=== PATIENT | female | born 1975 | race African-American/Black ===

== ENCOUNTER 2016-11-30 12:01 | Emergency (ER) | payer OTHER ==
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
[2016-11-30 11:48] LABS: INFLUENZA A POS (NEG); INFLUENZA B NEG (NEG)
== END 2016-11-30 12:12 | disposition home or self-care (01) ==
LOC: CFTX 12:01
PROVIDERS: Physician Assistant
DX: J10.1 Influenza due to other identified influenza virus with other respiratory manifestations (principal); E11.9 Type 2 diabetes mellitus without complications; J45.909 Unspecified asthma, uncomplicated; I10 Essential (primary) hypertension; F17.210 Nicotine dependence, cigarettes, uncomplicated
CPT/HCPCS: 71020; 87804; 99283

== ENCOUNTER 2017-01-20 16:42 | Emergency (ER) | payer OTHER ==
--- NOTE | ~2017-01-20 | CR169 ---
[facility] A Service [facility] RADIOLOGY TEXT RESULTS PATIENT: BABS HERNANDEZ LOCATION: [facility] : 73 UNIT #: [id number] AGE: [address]: Dina العلي APRN SEX: F ORDER DR: [id number] [place] [id number] [facility] [place], [place] [address] [id number] E MR#: [id number] Acc #: [id number] NAME: BABS HERNANDEZ. : 1975 SEX: F STUDY DATE/TIME: 01/20/2017 17:59 UNIT: [facility] ROOM: STUDY DESCRIPTION: CR Knee 2 Views Lt Attending Physician: Dina العلي A.P.R.N. Ordering Physician: Lloyd Lindsay M.D. Primary Care Physician: [facility] MEDICAL IMAGING REPORT This report is preliminary unless electronic signature is present EXAM Left knee HISTORY Knee pain after falling on the patella 6 days ago. COMPARISON Examination from 07/29/2011 TECHNIQUE 2 views of the knee were obtained. FINDINGS AP and lateral projection of the knee shows smooth articular anatomy without indication of fracture or dislocation at the major weight-bearing surface of the knee. There is no indication of radiopaque foreign body about the knee surface or joint effusion. IMPRESSION Normal knee. Dictated by... Soren Hadley M.D. THIS IS AN ELECTRONICALLY VERIFIED REPORT Soren Hadley M.D. at 01/22/2017 12:40 PM RLF/rnr TD: 01/20/2017 18:54 JOB #: [id number] MEDICAL IMAGING REPORT [facility] A [facility] RADIOLOGY TEXT RESULTS PATIENT: BABS HERNANDEZ LOCATION: [facility] : 73 UNIT #: [id number] AGE: [address]: Dina العلي APRN SEX: F ORDER DR: Page 1 of 1 COPY
== END 2017-01-20 18:46 | disposition home or self-care (01) ==
LOC: CFTX 16:42 → CED 16:42 → CFTX 18:15
DX: S80.01XA Contusion of right knee, initial encounter (principal); F17.210 Nicotine dependence, cigarettes, uncomplicated; W50.0XXA Accidental hit or strike by another person, initial encounter; Y92.009 Unspecified place in unspecified non-institutional (private) residence as the place of occurrence of the external cause; E11.9 Type 2 diabetes mellitus without complications; Z79.4 Long term (current) use of insulin; I10 Essential (primary) hypertension; M54.9 Dorsalgia, unspecified; G89.29 Other chronic pain
CPT/HCPCS: 29505; 73560; 99283

== ENCOUNTER → 2017-02-05 | Outpatient (CLI) | payer OTHER ==
--- NOTE | ~2017-02-05 | MR103 ---
[facility] A Service of [facility] RADIOLOGY TEXT RESULTS PATIENT: BABS HERNANDEZ [facility] : 73 UNIT #: [id number] AGE: [address]: Marifer Simms SEX: F ORDER DR: [id number] [facility] [address] [place], [place] [address] [id number] O MR#: [id number] Acc #: [id number] NAME: BABS HERNANDEZ : 1975 SEX: F STUDY DATE/TIME: 02/05/2017 17:29 UNIT: [facility] ROOM: STUDY DESCRIPTION: MR Knee Wo Contrast Lt Attending Physician: Marifer Simms P.A.-C. Referring Physician: Marifer Simms P.A.-C. Ordering Physician: Marifer Simms P.A.-C. Primary Care Physician: [facility] MRI CENTER REPORT This report is preliminary unless electronic signature is present. EXAM MRI left knee 02/05/2017 COMPARISON Left knee radiographs 01/20/2011 and 07/29/2011. HISTORY Order states left knee sprain. History sheet states diabetic. Left anterior knee pain and posterior pain. Posterior pain is less severe. Fell last month while watching granddaughter. Injury less than 1 month ago. No knee surgery. FINDINGS There is a trace effusion without a popliteal cyst. There is mild patella sharad and lateral patellar tilt. There is narrowing of the lateral patellofemoral compartment. There is xjy-ky-igjoospt grade chondromalacia of the lateral patellar facet and high-grade chondromalacia with subarticular edema of the inferior aspect of the lateral femoral trochlear facet. The quadriceps and patellar tendons are intact. Cruciate ligaments are normal. The medial meniscus, MCL, and medial compartment articular cartilage are normal. The lateral meniscus, lateral collateral ligament complex, and popliteus tendon are intact. Articular cartilage of the lateral compartment is normal. No marrow lesion, fracture, or loose body is identified. [facility] A Service [facility] RADIOLOGY TEXT RESULTS PATIENT: BABS HERNANDEZ LOCATION: [facility] : 73 UNIT #: [id number] AGE: [address]: Marifer Simms SEX: F ORDER DR: IMPRESSION 1. 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 Less prominent chondromalacia patella is noted. Findings are superimposed on mild patella sharad and lateral patellar tilt. 2. Minimal effusion. 3. Cruciate ligaments, menisci, and collateral ligaments are normal. 4. No loose body is identified. Dictated by... Roxanna Perez M.D. THIS IS AN ELECTRONICALLY VERIFIED REPORT Roxanna Perez M.D. at 02/08/2017 10:51 AM SHIRA/emily TD: 02/08/2017 10:44 JOB #: [id number] MRI CENTER REPORT Page 1 of 1 COPY
== END | disposition home or self-care (01) ==
LOC: CMRI 16:17
DX: S83.92XA Sprain of unspecified site of left knee, initial encounter (principal); M22.42 Chondromalacia patellae, left knee; M17.12 Unilateral primary osteoarthritis, left knee
CPT/HCPCS: 73721

== ENCOUNTER 2017-04-21 23:49 | Emergency (ER) | payer OTHER ==
[~2017-04-21] VITALS: Ht 177.8 cm; Wt 99.8 kg
--- NOTE | ~2017-04-21 | CR181 ---
[facility] A Service of [facility] & [facility] RADIOLOGY TEXT RESULTS PATIENT: BABS HERNANDEZ LOCATION: [facility] : 73 UNIT #: [id number] AGE: [address]: Mike Aponte MD SEX: F ORDER DR: [id number] [facility] [address] [place], [place] [address] [id number] E MR#: [id number] Acc #: [id number] NAME: BABS HERNANDEZ : 1975 SEX: F STUDY DATE/TIME: 04/22/2017 03:03 UNIT: [facility] ROOM: STUDY DESCRIPTION: CR Lumbar Spine 2 or 3 Views Attending Physician: Mike Aponte M.D. Ordering Physician: Mike Aponte M.D. Primary Care Physician: [facility] MEDICAL IMAGING REPORT This report is preliminary unless electronic signature is present EXAM Lumbar spine 04/22 at 03:03 INDICATION Low back pain for 6 weeks after a fall. Pain worsening over time. FINDINGS Three views of the lumbar spine are compared with CT lumbar spine from 04/21/2016. The patient is fused at L5-S1 with pedicle screws and an interbody spacer. No fracture is identified. Alignment is normal. IMPRESSION No fracture or malalignment. Patient is fused at L5-S1. Hardware does not appear significantly changed. Dictated by... Soren Whitt Jr., M.D. THIS IS AN ELECTRONICALLY VERIFIED REPORT Soren Whitt Jr., M.D. at 04/23/2017 12:52 AM ROSALIA/emily TD: 04/22/2017 08:57 JOB #: [id number] MEDICAL IMAGING REPORT Page 1 of 1 COPY
--- NOTE | ~2017-04-21 | CR169 ---
[facility] A Service of [facility] & [facility] RADIOLOGY TEXT RESULTS PATIENT: BABS HERNANDEZ LOCATION: [facility] : 73 UNIT #: [id number] AGE: [address]: Mike Aponte MD SEX: F ORDER DR: [id number] [facility] [address] [place], [place] [address] [id number] E MR#: [id number] Acc #: [id number] NAME: BABS HERNANDEZ : 1975 SEX: F STUDY DATE/TIME: 04/22/2017 03:01 UNIT: [facility] ROOM: STUDY DESCRIPTION: CR Knee 2 Views Lt Attending Physician: Mike Aponte M.D. Ordering Physician: Mike Aponte M.D. Primary Care Physician: [facility] MEDICAL IMAGING REPORT This report is preliminary unless electronic signature is present EXAM Left knee 04/22 at 03:01 INDICATION Left knee pain for 6 weeks after a fall. FINDINGS Two views of the left knee were obtained. There is no fracture or malalignment. There is no joint effusion. IMPRESSION Negative left knee. Dictated by... Soren Whitt Jr., M.D. THIS IS AN ELECTRONICALLY VERIFIED REPORT Soren Whitt Jr., M.D. at 04/23/2017 12:52 AM ROSALIA/emily TD: 04/22/2017 08:55 JOB #: [id number] MEDICAL IMAGING REPORT Page 1 of 1 COPY
== END 2017-04-22 04:08 | disposition home or self-care (01) ==
LOC: CED 23:49
DX: G89.29 Other chronic pain (principal); M54.5 Low back pain; I10 Essential (primary) hypertension; E11.9 Type 2 diabetes mellitus without complications
CPT/HCPCS: 72100; 73560; 96372; 99283; J1885

== ENCOUNTER → 2017-04-22 | Outpatient (CLI) | payer OTHER ==
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
== END | disposition home or self-care (01) ==
LOC: CRAD 11:14
DX: R06.02 Shortness of breath (principal); I10 Essential (primary) hypertension; Z18.10 Retained metal fragments, unspecified
CPT/HCPCS: 71020; 84703